=== PATIENT | male | born 1985 | race Caucasian/White ===

== ENCOUNTER 2021-10-29 18:43 | Emergency (ER) | payer OTHER, SELFPAY ==
[2021-10-29 18:50] VITALS: BP 133/82; PULSE 58; RESP 20; TEMP 36.6; O2SAT 100
--- NOTE | 2021-10-29 18:58 | ED.EAR ---
HPI - Ear Problem General Stated complaint: ear pain Time Seen by Provider: 10/29/21 18:48 Source: patient and RN notes reviewed History of Present Illness HPI Narrative: Patient is a 36-year-old male who presents the urgent care with complaints of bilateral ear pain. Patient states that it started a couple days ago. States that recently he did have a sinus infection and was treated with [id number] medication. Patient states he is taken ibuprofen and used an old prescription of eardrops. Denies of any known fevers. No other acute complaints. No acute distress noted. Patient aware of the plan of care. Some parts of this dictation were generated by voice recognition software and may contain typographical and/or grammatical inaccuracies. Review of Systems Review of Systems: CONSTITUTIONAL: Denies fever, chills, or sweats. EYES: Denies visual changes, redness, or discharge. ENT: Denies rhinorrhea, congestion, sore throat. Reports bilateral otalgia CARDIOVASCULAR: Denies chest pain, palpitations, or edema. RESPIRATORY: Denies cough or dyspnea. GASTROINTESTINAL: Denies abdominal pain, nausea, vomiting, or diarrhea. GENITOURINARY: Denies dysuria or hematuria. SKIN: Denies rash or itching. MUSCULOSKELETAL: Denies back pain, joint pain, or myalgia. NEUROLOGIC: Denies headache, numbness, or weakness. All other systems reviewed are negative, except as documented in HPI. PMFSH Comments At the time of my signature, I reviewed and agree with the nursing past medical, surgical, social, and family history. There is no relevant family history pertinent to the patient complaint. Exam Narrative: GENERAL: This is a well-nourished, well-developed patient, in no apparent distress. HEAD: normocephalic, atraumatic. EYES: PERRL. Sclera clear/white. Vision is grossly intact. EARS: External ears normal, right auditory canal erythemic and slightly edematous with scant drainage. Left auditory canal clear and without drainage, multiple scarring noted on bilateral TMs with eustachian tube dysfunction to the left. Right TM mildly injected and erythemic. NOSE: External nose normal with no obvious nasal discharge, nares without redness, no rhinorrhea. THROAT: Mucous membranes moist, posterior pharynx clear. NECK: Neck supple CARDIOVASCULAR: Regular rate and rhythm without murmurs, gallops, or rubs. RESPIRATORY: Clear to auscultation. Breath sounds equal bilaterally. No wheezes, rales, or rhonchi. SKIN: warm, intact with no suspicious lesions or rash, good texture and turgor. NEURO: awake, alert, and oriented to person, place and time. There were no obvious focal neurologic abnormalities. EXTREMITIES: No clubbing, cyanosis, or edema. Course Course Level of Care: Express Care Visit Vital Signs Vital signs: Vital Signs Temperature 97.8 F 10/29/21 18:50 Pulse Rate 58 L 10/29/21 18:50 Respiratory Rate 20 10/29/21 18:50 Blood Pressure 133/82 10/29/21 18:50 Pulse Oximetry 100 10/29/21 18:50 Temperature 97.8 F 10/29/21 18:50 Pulse Rate 58 L 10/29/21 18:50 Respiratory Rate 20 10/29/21 18:50 Blood Pressure 133/82 10/29/21 18:50 Pulse Oximetry 100 10/29/21 18:50 Reviewed Medical Decision Making MDM Narrative Medical decision making narrative: Advised the patient to complete the oral antibiotic regimen as prescribed. Use the eardrops to the right ear as directed. Use a warm compress and ibuprofen as needed for pain relief. Do not put anything else in the ear such as Q-tips, water or peroxide. Be sure to eat and drink with the medication. Use a humidifier at night. Follow-up with your PCP within 2 to 5 days or for worsening symptoms or failure to improve. Differential Diagnosis Differential Diagnosis: Pneumonia, Allergic Rhinitis, Upper respiratory cough syndrome, Pharyngitis, Sinusitis, Bronchitis, otitis media, viral URI, Asthma/reactive airway disease, COPD, emphysema Vital Signs Vital Signs: Vital Signs Temperat
== END 2021-10-29 19:10 | disposition home or self-care (01) ==
PROVIDERS: Emergency Provider Nurse Practitioner Family; PCP Internal Medicine
DX: H60.91 Unspecified otitis externa, right ear (principal); H66.91 Otitis media, unspecified, right ear; Z86.16 Personal history of COVID-19
CPT/HCPCS: 99203; G0463

== ENCOUNTER 2021-11-21 16:03 | Emergency (ER) | payer OTHER, SELFPAY ==
[2021-11-21 16:12] VITALS: BP 124/77; PULSE 57; RESP 20; O2SAT 97
--- NOTE | 2021-11-21 16:25 | ED.EAR ---
HPI - Ear Problem General Chief complaint: Ear Stated complaint: Ear Problem Time Seen by Provider: 11/21/21 16:27 Source: patient, RN notes reviewed and old records reviewed Mode of arrival: ambulatory Limitations: no limitations History of Present Illness HPI Narrative: 36 year old male who presents to [facility] with complaints of right ear pain since yesterday. He reports that he has had history of ear problems in the past and some sinus allergies He reports that he has bee taking Xyzal and Singulair and he has right ear pain which he rates as 6/10. Patient reports ear infection in October that he took oral antibiotic of Augmentin and ear drops Complaint: ear pain (right) Location: right ear Severity: moderate Discharge from ear: Reports no Treatment prior to arrival: other (singulair and antihistamine) Related Data Home Medications Medication Instructions Recorded Confirmed montelukast 10 mg PO DAILY 10/29/21 11/21/21 sertraline 50 mg PO DAILY 10/29/21 11/21/21 levocetirizine [Xyzal] 5 mg PO DAILY 11/21/21 11/21/21 Allergies Allergy/AdvReac Type Severity Reaction Status Date / Time ibuprofen Allergy Swelling Verified 11/21/21 16:27 Review of Systems Review of Systems: CONSTITUTIONAL: Denies fever, chills, or sweats. EYES: Denies visual changes, redness, or discharge. ENT: Positive for rhinorrhea, congestion,no sore throat,right otalgia. CARDIOVASCULAR: Denies chest pain, palpitations, or edema. RESPIRATORY: Denies cough or dyspnea. GASTROINTESTINAL: Denies abdominal pain, nausea, vomiting, or diarrhea. GENITOURINARY: Denies dysuria or hematuria. SKIN: Denies rash or itching. MUSCULOSKELETAL: Denies back pain, joint pain, or myalgia. NEUROLOGIC: Denies headache, numbness, or weakness. PSYCHIATRIC: Positive for history of anxiety or depression. All systems reviewed & are unremarkable except as noted in HPI and below PMFSH Past Medical History Medical History (Updated 11/22/21 @ 00:00 by Padilla Whitehead) Anxiety with depression COVID-19 May of 2020 Surgical History Surgical History (Updated 11/21/21 @ 17:12 by Sariah Ortiz NP) History of placement of ear tubes History of tympanoplasty of right ear Social History Social History (Updated 11/21/21 @ 17:01 by Sariah Ortiz NP) Smoking status: Never smoker Alcohol intake: current Alcohol use details: social Substance use type: does not use Living arrangements: with family Gender identity (if verbalized by the patient): Male Comments At time of signature, agree with nursing past medical, surgical, social and family history. There is no relevant family history pertinent to the presenting complaint Exam Narrative: GENERAL: Well-appearing, well-nourished, and in no acute distress. HEAD: Normocephalic, atraumatic. EYES: PERRLA and EOMI. ENT: Nares red with membranes swollen, clear rhinorrhea no epistaxis. Mucous membranes moist.Right TM red with dull light reflex, some old scaring noted, Left TM normal with some old scaring with good light reflex, throat red with no exudates or lesion, tonsils minimal swelling NECK: Supple. no lymphadenopathy CHEST: Clear to auscultation. No respiratory distress.SAO2 100% on room air HEART: Regular rate and rhythm. No murmur heard. Normal peripheral pulses. ABDOMEN: Soft, nontender, nondistended, normal active bowel sounds. EXTREMITIES: Normal range of motion. No edema. SKIN: Warm, dry, no rash. NEURO: No focal deficits. Alert and oriented x3. Course Course Level of Care: Express Care Visit Vital Signs Vital signs: Vital Signs Pulse Rate 57 L 11/21/21 16:12 Respiratory Rate 11/21/21 16:12 Blood Pressure 124/77 11/21/21 16:12 Pulse Oximetry 97 11/21/21 16:12 Pulse Rate 57 L 11/21/21 16:12 Respiratory Rate 20 11/21/21 16:12 Blood Pressure 124/77 11/21/21 16:12 Pulse Oximetry 97 11/21/21 16:12 Medical Decision Making Differential Diagnosis
== END 2021-11-21 16:52 | disposition home or self-care (01) ==
PROVIDERS: Emergency Provider Registered Nurse; PCP Internal Medicine
DX: H66.91 Otitis media, unspecified, right ear (principal)
CPT/HCPCS: 99213; G0463

== ENCOUNTER 2023-10-02 15:17 | Emergency (ER) | payer OTHER, SELFPAY ==
[2023-10-02 15:25] VITALS: BP 122/75; PULSE 67; RESP 16; TEMP 37.1; O2SAT 98
--- NOTE | 2023-10-02 16:05 | ED.GENADULT ---
HPI - General Adult General Chief complaint: Back Pain/Injury Stated complaint: lower back pain Source: patient, RN notes reviewed and old records reviewed Mode of arrival: ambulatory Limitations: no limitations History of Present Illness HPI narrative: 38-year-old male presents to [facility] with complaint of lower back pain that started 2 days ago after lifting weights. Patient has not tried anything at home other than stretching. Patient denies any other injuries. Related Data Allergies Allergy/AdvReac Type Severity Reaction Status Date / Time ibuprofen Allergy Swelling Verified 11/21/21 16:27 Review of Systems Constitutional: Constitutional: Reports no additional constitutional complaints, Denies body ache(s), Denies chills, Denies fatigue, Denies fever(s) and Denies headache(s) Eyes: Eyes: Reports no additional eye complaints and Denies blurry vision ENT: Reports system reviewed and no additional complaints, except as documented, Denies vertigo, Denies dizziness, Denies ear discharge, Denies otalgia, Denies facial pain, Denies headache(s), Denies nasal congestion, Denies nasal discharge, Denies sinus pain, Denies sinus pressure and Denies sore throat Cardiovascular: Cardiovascular: Reports no additional cardiovascular complaints, Denies chest pain, Denies chest pain at rest, Denies rapid heart rate and Denies dyspnea Respiratory: Respiratory: Reports no additional respiratory complaints, Denies chest congestion, Denies cough, Denies pain on inspiration, Denies pain with cough and Denies dyspnea Gastrointestinal: Gastrointestinal: Denies abdominal pain, Denies diarrhea, Denies nausea and Denies vomiting Musculoskeletal: Musculoskeletal: Reports back pain Integumentary/Breasts: Skin/Breast: Denies rash Neurologic: Reports system reviewed and no additional complaints, except as documented, Denies vertigo, Denies dizziness and Denies headache(s) Endocrine: Endocrine: Denies fatigue PMF Past Medical History Medical History Anxiety with depression COVID-19 May of 2020 Surgical History Surgical History History of placement of ear tubes History of tympanoplasty of right ear Social History Social History Smoking status: Never smoker Alcohol intake: current Alcohol use details: social Substance use type: does not use Living arrangements: with family Gender identity (if verbalized by the patient): Male Comments At the time of my signature, I reviewed and agree with the nursing past medical, surgical, social, and family history. There is no relevant family history pertinent to the patient complaint. Exam Const: General: cooperative, healthy appearing, no acute distress and well nourished Nutritional Appearance: well nourished Orientation/consciousness: patient oriented x3 Limitations: no limitations HENMT: Head: normal to inspection and normocephalic Ears: external ears normal Face/Nose/Sinus: normal facial exam Face and sinus: normal facial exam Mouth: Yes Normal oral and palatal mucosa present, Yes oropharynx normal and Yes moist mucous membranes Eyes: General: appearance normal, both eyes and all related structures Sclera: sclerae normal Pupils: Equal, round and reactive pupils present Resp: Effort & Inspection: normal respiratory effort, able to speak in complete sentences, no audible wheezes, no cough, no respiratory distress and no retractions Back/Spine/Pelvis: Back: no CVA tenderness Cervical Spine: normal cervical lordosis and cervical ROM normal Thoracic/Lumbar Spine: paraspinal muscle tenderness, No thoraco-lumbar ROM limited, thoraco-lumbar spasm bilaterally, No thoracic spinal tenderness, No lumbar spinal tenderness and No straight leg raise positive Skin: General skin exam: normal color and no rashes or les
== END 2023-10-02 16:12 | disposition home or self-care (01) ==
PROVIDERS: Emergency Provider Registered Nurse; PCP Internal Medicine
DX: S39.012A Strain of muscle, fascia and tendon of lower back, initial encounter (principal); X50.0XXA Overexertion from strenuous movement or load, initial encounter; Z86.16 Personal history of COVID-19
CPT/HCPCS: 99213; G0463